=== PATIENT | female | born 1975 | race American Indian/Alaskan Native ===

== ENCOUNTER 2019-01-08 14:05 | Outpatient (CLI) | payer OTHER ==
--- NOTE | 2019-01-08 14:36 | XRay Report ---
Chest 2 views: History: URI/cough. Findings: Normal cardiomediastinal silhouette. Trachea is midline. No consolidation, pneumothorax or pleural effusion. Impression: No acute cardiopulmonary findings.
== END 2019-01-08 14:06 | disposition home or self-care (01) ==
LOC: SPVIMAG 14:05
PROVIDERS: ATTEND Internal Medicine
DX: J06.9 Acute upper respiratory infection, unspecified (principal)
CPT/HCPCS: 71046

== ENCOUNTER 2020-12-28 15:28 | Outpatient (CLI) | payer OTHER ==
--- NOTE | 2020-12-28 16:05 | XRay Report ---
RIGHT ANKLE HISTORY: Pain COMPARISON: None. TECHNIQUE: 4 views of the right ankle obtained. FINDINGS: Bones: No fracture or dislocation. Joint spaces: Maintained. Soft tissues: Soft tissue swelling overlies the lateral malleolus. Additional findings: None. IMPRESSION: Soft tissue swelling overlies the lateral malleolus without evidence of acute osseous injury. Signer Name: Mejia Forte MD Signed: 12/28/2020 3:59 PM Workstation Name: [id number]
== END 2020-12-28 15:29 | disposition home or self-care (01) ==
LOC: SPVIMAG 15:28
PROVIDERS: ATTEND Internal Medicine
DX: M25.571 Pain in right ankle and joints of right foot (principal); M79.89 Other specified soft tissue disorders